=== PATIENT | male | born 1945 | race Caucasian/White ===

== ENCOUNTER → 2016-08-31 | Outpatient (CLI) | payer BC | END | disposition home or self-care (01) | LOC: LAB.O 14:23 | PROVIDERS: ATTEND Urology | DX: E29.1 Testicular hypofunction (principal) ==

== ENCOUNTER → 2016-09-09 | Outpatient (CLI) | payer BC | END | disposition home or self-care (01) | LOC: GMAL 10:13 | PROVIDERS: ATTEND Family Medicine | DX: D51.3 Other dietary vitamin B12 deficiency anemia (principal) ==

== ENCOUNTER → 2016-11-09 | Outpatient (CLI) | payer BC | END | disposition home or self-care (01) | LOC: GMAL 11:26 | PROVIDERS: ATTEND Family Medicine | DX: D51.3 Other dietary vitamin B12 deficiency anemia (principal); E55.9 Vitamin D deficiency, unspecified ==

== ENCOUNTER → 2017-03-15 | Outpatient (CLI) | payer BC | END | disposition home or self-care (01) | LOC: LAB.O 07:58 | PROVIDERS: ATTEND Urology | DX: E29.1 Testicular hypofunction (principal) | CPT/HCPCS: 36415; 80053; 84403; G0103 ==

== ENCOUNTER → 2017-09-01 | Outpatient (CLI) | payer BC | LOC: LAB.O 07:26 | PROVIDERS: ATTEND Urology | DX: E29.1 Testicular hypofunction (principal); R97.20 Elevated prostate specific antigen [PSA] ==

== ENCOUNTER → 2017-12-02 | Outpatient (CLI) | payer BC | LOC: GMAL 11:31 | PROVIDERS: ATTEND Family Medicine | DX: D51.3 Other dietary vitamin B12 deficiency anemia (principal); R53.83 Other fatigue; E55.9 Vitamin D deficiency, unspecified ==

== ENCOUNTER → 2018-01-12 | Outpatient (CLI) | payer BC ==
--- NOTE | 2018-01-12 10:13 | RAD ---
EXAM DESCRIPTION: Shoulder,Right 2 or More Views CLINICAL HISTORY: 72 years Male, PAIN COMPARISON: None available. FINDINGS: The visualized bones are well-mineralized.No acute fracture or dislocation. The soft tissues appear grossly unremarkable. Mild acromioclavicular joint osteoarthritis. Irregularity along the greater tuberosity suggests rotator cuff pathology. IMPRESSION: Mild acromioclavicular joint osteoarthritis. Irregularity along the greater tuberosity suggests rotator cuff pathology. Electronically signed by: Bethany Dudley MD 01/12/2018 10:12 AM CDT
== END ==
LOC: RAD 07:38
PROVIDERS: ATTEND Orthopaedic Surgery
DX: M19.011 Primary osteoarthritis, right shoulder (principal); M25.511 Pain in right shoulder

== ENCOUNTER → 2018-02-27 | Outpatient (CLI) | payer BC | LOC: GMAL 17:57 | PROVIDERS: ATTEND Family Medicine | DX: R30.0 Dysuria (principal); N41.1 Chronic prostatitis ==

== ENCOUNTER → 2018-03-02 | Outpatient (CLI) | payer BC | LOC: LAB.O 08:03 | PROVIDERS: ATTEND Urology | DX: N42.9 Disorder of prostate, unspecified (principal); E29.1 Testicular hypofunction ==

== ENCOUNTER → 2018-06-08 | Outpatient (CLI) | payer BC | LOC: GMAL 10:56 | PROVIDERS: ATTEND Family Medicine | DX: D51.0 Vitamin B12 deficiency anemia due to intrinsic factor deficiency (principal); R97.20 Elevated prostate specific antigen [PSA] ==

== ENCOUNTER → 2018-09-12 | Outpatient (CLI) | payer BC | LOC: LAB.O 07:09 | PROVIDERS: ATTEND Family Medicine | DX: E29.1 Testicular hypofunction (principal); R97.20 Elevated prostate specific antigen [PSA] ==

== ENCOUNTER → 2018-10-16 | Outpatient (CLI) | payer BC ==
--- NOTE | 2018-10-16 11:57 | RAD ---
EXAM DESCRIPTION: Pelvis, single view CLINICAL HISTORY: M25.551 FINDINGS/ IMPRESSION: Mild joint space narrowing bilateral hips. Superior lateral acetabular osteophyte ridge No fracture of proximal femora or pelvis. No advanced arthrosis of the sacroiliac joints or pubic symphysis Electronically signed by: Christopher Gilmore MD 10/16/2018 11:55 AM CDT
--- NOTE | 2018-10-16 12:01 | RAD ---
EXAM DESCRIPTION: Knee,Left Complete CLINICAL HISTORY: 73 years Male, M25.561 TECHNIQUE: 3 views of the left knee were performed. COMPARISON: None available. FINDINGS: The visualized bones appear well mineralized. No acute fracture or dislocation. Tricompartmental joint space narrowing and osteophytosis is noted, worse in the lateral tibiofemoral compartment. Small suprapatellar joint effusion is identified. The soft tissues appear grossly unremarkable. Spurring of the tibial tuberosity is noted. IMPRESSION: Tricompartmental osteoarthritis of the left knee, worse in the lateral tibiofemoral compartment. Electronically signed by: Bethany Dudley MD 10/16/2018 11:59 AM CDT
--- NOTE | 2018-10-16 12:02 | RAD ---
EXAM DESCRIPTION: Knee,Right Complete CLINICAL HISTORY: 73 years Male, KNEE PAIN TECHNIQUE: 3 views of the right knee were performed. COMPARISON: None available. FINDINGS: The visualized bones appear well mineralized. No acute fracture or dislocation. Tricompartmental joint space narrowing and marginal osteophytosis is noted, worse in the lateral tibiofemoral compartment. Tiny suprapatellar joint effusion is noted. Spurring of the tibial tuberosity is identified. The soft tissues appear grossly unremarkable. IMPRESSION: Tricompartmental osteoarthritis of the right knee, with changes worse in the lateral tibiofemoral compartment. Electronically signed by: Bethany Dudley MD 10/16/2018 11:59 AM CDT
== END ==
LOC: RAD 08:10
PROVIDERS: ATTEND Orthopaedic Surgery
DX: M17.12 Unilateral primary osteoarthritis, left knee (principal); M17.11 Unilateral primary osteoarthritis, right knee; M25.552 Pain in left hip; M25.551 Pain in right hip; M25.70 Osteophyte, unspecified joint

== ENCOUNTER → 2018-12-06 | Outpatient (CLI) | payer BC | LOC: GMAL 10:43 | PROVIDERS: ATTEND Family Medicine | DX: D51.3 Other dietary vitamin B12 deficiency anemia (principal); I10 Essential (primary) hypertension; E78.49 Other hyperlipidemia; E55.9 Vitamin D deficiency, unspecified ==

== ENCOUNTER → 2019-03-15 | Outpatient (CLI) | payer BC | LOC: LAB.O 07:42 | PROVIDERS: ATTEND Urology | DX: R97.20 Elevated prostate specific antigen [PSA] (principal); E29.1 Testicular hypofunction ==

== ENCOUNTER → 2019-12-27 | Outpatient (CLI) | payer BC | LOC: GMAL 10:17 | PROVIDERS: ATTEND Family Medicine | DX: D51.3 Other dietary vitamin B12 deficiency anemia (principal); I10 Essential (primary) hypertension; R97.20 Elevated prostate specific antigen [PSA]; R53.83 Other fatigue; E55.9 Vitamin D deficiency, unspecified; E78.49 Other hyperlipidemia ==

== ENCOUNTER 2020-01-23 15:48 | Emergency (ER) | payer BC ==
--- NOTE | 2020-01-23 16:46 | RAD ---
EXAM DESCRIPTION: Chest,1 View CLINICAL HISTORY: fever COMPARISON: Chest radiograph dated July 27, 2019 TECHNIQUE: One view radiograph of the chest FINDINGS: Lung volumes are shallow with associated bronchovascular crowding. Cardiac silhouette shows normal heart size. Pulmonary vascularity is within normal limits. Subtle linear opacity in the left lung base most compatible with atelectasis. Otherwise, lungs show no confluent infiltrates. Right lung shows no confluent infiltrates. No pleural effusion. No pneumothorax. No acute osseous abnormality. IMPRESSION: Minimal left basilar atelectasis. Otherwise, lungs show no confluent infiltrates. Electronically signed by: Gianfranco Zavala MD 01/23/2020 4:44 PM CDT
--- NOTE | 2020-01-23 18:20 | ED.PDOC ---
History of Present Illness - General Chief Complaint: Lower Extremity Injury Stated Complaint: swollen left knee (post left TKA) / fever Time Seen by Provider: 01/23/20 16:12 Source: patient, family Exam Limitations: no limitations - History of Present Illness Initial Comments: The patient is a 4-year-old male presented emergency room secondary to mild increased erythema to his left knee operative site as well as a low-grade temperature of 100.8 this morning. The patient had a knee replacement done [address] Wallace in [place]. Contact information for the clinic is [phone]. There is mild erythema over the site. No drainage. Borders of the erythema are marked with a marking pen. has taken a picture with her digital phone. The patient is currently afebrile. There is not really much in the way of increased pain. For 1 week out, the knee looks fairly normal. Timing/Duration: 4-6 hours Severity: mild Improving Factors: nothing Worsening Factors: nothing Associated Symptoms: denies symptoms Allergies/Adverse Reactions: Allergies NO KNOWN ALLERGY Allergy (Verified 01/23/20 16:08) Review of Systems - Review of Systems Constitutional: States: fever EENTM: States: no symptoms reported Respiratory: States: no symptoms reported Cardiology: States: no symptoms reported Gastrointestinal/Abdominal: States: no symptoms reported Genitourinary: States: no symptoms reported Musculoskeletal: States: see HPI Skin: States: see HPI Neurological: States: no symptoms reported Endocrine: States: no symptoms reported All other Systems: No Change from Baseline Past Medical History (General) - Patient Medical History Hx Cardiac Disorders: No Hx Congestive Heart Failure: No Hx Hypertension: Yes Hx Diabetes: No - Vaccination History Hx Influenza Vaccination: Yes Hx Pneumococcal Vaccination: Yes - Social History Hx Alcohol Use: Yes - Activities of Daily Living Hospice Agency (if applicable):: None - Female History Patient is a Female of Child Bearing Age (10 -59 yrs old): No Family Medical History - Family History Mother Family History: Unknown Physical Exam - Physical Exam General Appearance: Alert, Comfortable, No apparent distress Eye Exam: right normal Ears, Nose, Throat: hearing grossly normal, normal pharynx Neck: full range of motion, supple Respiratory: lungs clear, normal breath sounds, no respiratory distress, no accessory muscle use Cardiovascular/Chest: normal peripheral pulses, regular rate, rhythm, no edema Peripheral Pulses: radial,right: 2+, radial,left: 2+, dorsalis pedis,right: 2+, dorsalis pedis,left: 2+ Gastrointestinal/Abdominal: non tender, soft Rectal Exam: deferred Back Exam: no vertebral tenderness Extremity: normal range of motion - Given recent surgical limitation, no pedal edema, normal capillary refill 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 Very mild distal swelling Comments: Vital Signs - 24 hr 01/23/20 01/23/20 01/23/20 16:00 16:17 17:00 Temperature 98.6 F 96.9 F L Pulse Rate [ 84 84 73 brachial] Respiratory 16 16 16 Rate Blood Pressure 108/60 113/64 [Left Arm] O2 Sat by Pulse 95 98 Oximetry Progress - Progress Progress: 01/23/20 18:21 The patient is a 74-year-old male presented emergency room secondary to a low-grade fever earlier in the day along with some redness to the left knee operative site today. The patient had apparently done fairly aggressive therapy yesterday. Patient is currently afebrile. Erythema is really fairly minimal at this point. Area has been demarcated and photographed with the 's phone. White blood cell count was 13,000 with 76% neutrophils. This is a little higher than his normal. CRP was 11.7. This was simply done for reference. Overall the patient appears to be doing well. I did discuss the patient with Dr. Wallace's chemical instrumentation officer doctor, Dr. Ayala. It was agreed that the patient will be allowed to go home and contact Dr. Wallace's office tomorrow to set up an clinic appointment for the next day. No antibiotics have been started at this time. A blood culture was done. Strict ER warnings are given for any acute worsening. monica larios [phone] - Results/Orders Results/Orders: Laboratory Tests 01/23/20 01/23/20 16:25 16:25 WBC 13.2 H RBC 4.07 L Hgb 13.3 L Hct 38.3 L MCV 94.2 H MCH 32.7 H MCHC 34.7 RDW 13.4 Plt Count 362 MPV 6.5 L Absolute Neuts (auto) 10.10 H Absolute Lymphs (auto) 1.10 Absolute Monos (auto) 1.40 H Absolute Eos (auto) 0.50 H Absolute Basos (auto) 0.10 Neutrophils % 76.5 Lymphocytes % 8.4 L Monocytes % 10.6 H Eosinophils % 4.0 Basophils % 0.5 Sodium 135 Potassium 4.2 Chloride 99 L Carbon Dioxide 27 Anion Gap 13.2 BUN 39 H Creatinine 1.18 BUN/Creatinine Ratio 33.1 H Random Glucose 113 H Serum Osmolality 280.3 Calcium 8.6 Total Bilirubin 0.9 AST 18 ALT 22 Alkaline Phosphatase 42 C-Reactive Protein 11.7 H* Serum Total Protein 6.0 L Albumin 3.5 Globulin 2.5 Albumin/Globulin Ratio 1.4 Bio fire test from the clinic is negative. Chest x-ray shows no acute pathology. there is mild atelectasis Departure - Departure Clinical Impression: Postsurgical fever Disposition: Discharge to Home or Self Care Condition: Fair Departure Forms: ED Discharge - Pt. Copy, Patient Portal Self Enrollment Diet: regular diet Activity: increase activity as tolerated Referrals: Gianfranco Ceballos III, MD [Primary Care Provider] - 1-2 Weeks Additional Instructions: The patient is a 74-year-old male presented emergency room secondary to a low-grade fever earlier in the day along with some redness to the left knee operative site today. The patient had apparently done fairly aggressive therapy yesterday. Patient is currently afebrile. Erythema is really fairly minimal at this point. Area has been demarcated and photographed with the 's phone. White blood cell count was 13,000 with 76% neutrophils. This is a little higher than his normal. CRP was 11.7. This was simply done for reference. Overall the patient appears to be doing well. I did discuss the patient with Dr. Wallace's chemical instrumentation officer doctor, Dr. Ayala. It was agreed that the patient will be allowed to go home and contact Dr. Wallace's office tomorrow to set up an clinic appointment for the next day. No antibiotics have been started at this time. A blood culture was done. Strict ER warnings are given for any acute worsening. motrin or aleve can be used for discomfort.
[2020-01-23 18:34] VITALS: TEMP 97.1
[2020-01-23 18:35] VITALS: BP 126/63; O2SAT 95
== END 2020-01-23 18:35 | disposition home or self-care (01) ==
LOC: ER 15:48
DX: R50.82 Postprocedural fever (principal); I10 Essential (primary) hypertension; Z96.652 Presence of left artificial knee joint

== ENCOUNTER → 2020-02-04 | Outpatient (CLI) | payer BC | LOC: LAB.O 12:27 | PROVIDERS: ATTEND Internal Medicine | DX: B95.7 Other staphylococcus as the cause of diseases classified elsewhere (principal); T84.54XA Infection and inflammatory reaction due to internal left knee prosthesis, initial encounter ==

== ENCOUNTER → 2020-02-11 | Outpatient (CLI) | payer BC | END | disposition home or self-care (01) | LOC: LAB.O 13:10 | PROVIDERS: ATTEND Internal Medicine | DX: T84.54XA Infection and inflammatory reaction due to internal left knee prosthesis, initial encounter (principal) ==

== ENCOUNTER → 2020-02-25 | Outpatient (CLI) | payer BC | LOC: LAB 12:06 | PROVIDERS: ATTEND Internal Medicine | DX: T84.54XA Infection and inflammatory reaction due to internal left knee prosthesis, initial encounter (principal) ==

== ENCOUNTER → 2020-04-11 | Outpatient (CLI) | payer BC ==
--- NOTE | 2020-04-12 21:57 | RAD ---
EXAM DESCRIPTION: Radiographs of the right Shoulder:XR/CR/DR CLINICAL HISTORY: PAIN IN RIGHT SHOULDER COMPARISON: Same radiograph series of the left shoulder. TECHNIQUE: Three views. Internal and External rotation. Scapular "Y" image. FINDINGS: No fracture right shoulder.. Normal bone density. AC joint minimal marginal spurs. Glenohumeral joint narrowing and marginal spurs inferior. Sclerosis and minimal hypertrophy of the greater tuberosity. Possible subchondral changes inferior glenoid. No abnormal radiodense objects in the soft tissues or joint spaces. No dislocation. IMPRESSION: Minimal arthrosis in the right AC joint and in the inferior right glenohumeral joint with possible subchondral changes inferior right glenoid. Electronically signed by: Amado Quintana MD 04/12/2020 9:55 PM CDT
--- NOTE | 2020-04-12 21:58 | RAD ---
EXAM DESCRIPTION: Radiographs of the left Shoulder:XR/CR/DR CLINICAL HISTORY: PAIN IN LEFT SHOULDER COMPARISON: Right shoulder radiographs on the same visit. TECHNIQUE: 4 views. Internal and External rotation. Scapular "Y" image and axillary view. FINDINGS: No fracture left shoulder. Normal bone density. AC joint inferior marginal spurs. Glenohumeral joint unremarkable. No abnormal radiodense objects in the soft tissues or joint spaces. No dislocation. IMPRESSION: Minimal arthrosis in the left AC joint. Electronically signed by: Amado Quintana MD 04/12/2020 9:57 PM CDT
== END ==
LOC: RAD 08:19
PROVIDERS: ATTEND Orthopaedic Surgery
DX: M19.011 Primary osteoarthritis, right shoulder (principal); M19.012 Primary osteoarthritis, left shoulder

== ENCOUNTER 2020-05-17 12:46 | Emergency (ER) | payer BC ==
--- NOTE | 2020-05-17 13:23 | ED.PDOC ---
History of Present Illness - General Chief Complaint: General Stated Complaint: LEFT LEG SWELLING X 1 WEEK Time Seen by Provider: 05/17/20 13:00 Source: patient Exam Limitations: no limitations, clinical condition - History of Present Illness Initial Comments: PATIENT WITH 3-4 DAYS HX OF PROGRESSIVE LEFT LOWER LEG SWELLING, CALF PAIN AND PAIN WITH WALKING. DENIES PRIOR HX OF DVT. PMHX OF HTN. Improving Factors: nothing Worsening Factors: nothing Associated Symptoms: denies symptoms Allergies/Adverse Reactions: Allergies NO KNOWN ALLERGY Allergy (Verified 05/17/20 12:53) Home Medications: Ambulatory Orders Daptomycin [Cubicin] 500 mg IV Q24HR 02/13/20 Escitalopram Oxalate [Lexapro] 20 mg PO DAILY 02/13/20 Hydrocodone-Acetaminophen [Erie 7.5-325 mg] 1 tab PO PRN 02/13/20 Hydroxychloroquine Sulfate [Plaquenil] 200 mg PO BID 02/13/20 Lisinopril 10 mg PO DAILY 02/13/20 Meloxicam [Mobic] 15 mg PO DAILY 02/13/20 Prednisone 10 mg PO BERRY-OTH-DAY 02/13/20 Promethazine Tab [Phenergan Tablet] 1 tablet PO Q6H #12 tab 02/13/20 Tamsulosin [Flomax] 0.4 mg PO BID 02/13/20 Testosterone Cypionate 200 mg IJ .[id number] 02/13/20 Trazodone HCl [Trazodone Hydrochloride] 100 mg PO BEDTIME 02/13/20 Review of Systems - Review of Systems Constitutional: States: no symptoms reported EENTM: States: no symptoms reported Respiratory: States: no symptoms reported Cardiology: States: no symptoms reported Gastrointestinal/Abdominal: States: no symptoms reported Genitourinary: States: no symptoms reported Musculoskeletal: States: see HPI Skin: States: no symptoms reported Neurological: States: no symptoms reported Endocrine: States: no symptoms reported Past Medical History (General) - Patient Medical History Hx Seizures: No Hx Stroke: No Hx Dementia: No Hx Asthma: No Hx of COPD: No Hx Cardiac Disorders: No Hx Congestive Heart Failure: No Hx Pacemaker: No Hx Hypertension: Yes Hx Thyroid Disease: No Hx Diabetes: No Hx Gastroesophageal Reflux: No Hx Renal Disease: No Hx Cancer: Yes Hx of HIV: No Hx Hepatitis C: No Hx MRSA: No - Vaccination History Hx Tetanus, Diphtheria Vaccination: Yes Hx Influenza Vaccination: No Hx Pneumococcal Vaccination: No Immunizations Up to Date: No - Social History Hx Tobacco Use: No Hx Chewing Tobacco Use: No Hx Alcohol Use: Yes Hx Substance Use: No Hx Substance Use Treatment: No Hx Depression: No Feels Threatened In Home Enviroment: No Feels Threatened In a Relationship: No Hx Physical Abuse: No Hx Emotional Abuse: No Hx Suspected Abuse: No - Female History Patient is a Female of Child Bearing Age (10 -59 yrs old): No Patient : No Family Medical History - Family History Mother Family History: Unknown Living Status: Hx Family Asthma: No Hx Family Congestive Heart Failure: No Hx Family Hypertension: No Hx Family Stroke: No Physical Exam - Physical Exam General Appearance: Alert, Comfortable, Well Developed, Well Groomed Neck: non-tender, full range of motion, supple, normal inspection Respiratory: chest non-tender, lungs clear, normal breath sounds, no respiratory distress Cardiovascular/Chest: normal peripheral pulses, regular rate, rhythm, no edema, no gallop Gastrointestinal/Abdominal: normal bowel sounds, non tender, soft, no organomegaly Back Exam: normal inspection, no CVA tenderness, no vertebral tenderness Extremity: normal range of motion, non-tender, normal inspection, no pedal edema Neurologic: ambulance driver II-XII nml as tested, no motor/sensory deficits, alert Progress - EKG/XRAY/CT CT Ordered: No CT Interpretation Call Back: No Departure - Departure Clinical Impression: Hematoma of lower leg Clinical Impression: (Ruled Out): Calcified hematoma of head Time of Disposition: 14:20 Disposition: Discharge to Home or Self Care Condition: Good Departure Forms: ED Discharge - Pt. Copy, Patient Portal Self Enrollment Instructions: Contusion (DC) Referrals: Gianfranco Ceballos III, MD [Primary Care Provider] - 1-2 Weeks Home Medications: Ambulatory Orders Daptomycin [Cubicin] 500 mg IV Q24HR 02/13/20 Escitalopram Oxalate [Lexapro] 20 mg PO DAILY 02/13/20 Hydrocodone-Acetaminophen [Erie 7.5-325 mg] 1 tab PO PRN 02/13/20 Hydroxychloroquine Sulfate [Plaquenil] 200 mg PO BID 02/13/20 Lisinopril 10 mg PO DAILY 02/13/20 Meloxicam [Mobic] 15 mg PO DAILY 02/13/20 Prednisone 10 mg PO BERRY-OTH-DAY 02/13/20 Promethazine Tab [Phenergan Tablet] 1 tablet PO Q6H #12 tab 02/13/20 Tamsulosin [Flomax] 0.4 mg PO BID 02/13/20 Testosterone Cypionate 200 mg IJ .[id number] 02/13/20 Trazodone HCl [Trazodone Hydrochloride] 100 mg PO BEDTIME 02/13/20 Additional Instructions: RECOMMEND GEMA HOSE(JOBST STOCKING), HEATING PAD AND TIME. THIS PROBLEM SHOULD SPONTANEOUSLY RESOLVE OVER THE NEXT 3-6 WEEKS.
[2020-05-17 13:58] VITALS: BP 139/74
--- NOTE | 2020-05-17 14:10 | US ---
EXAM DESCRIPTION: Venous,Lower Extremity LT CLINICAL HISTORY: 74 years Male, R/O DVT COMPARISON: None. TECHNIQUE: Grayscale, color, and spectral Doppler imaging was obtained of the veins within the left leg. FINDINGS: The common femoral vein, femoral vein, greater saphenous vein origin, popliteal vein, and posterior tibial veins are imaged on this exam. There is no thrombus or occlusion identified. The vessels are compressible, where possible. Normal color and spectral characteristics are demonstrated. There is generalized edema within the calf. A more focal fluid collection is seen in the medial left lower leg measuring 1 cm in thickness and extending over an approximately 6 cm length. IMPRESSION: 1. No left lower extremity DVT. 2. Generalized subcutaneous edema, which is somewhat more focal in the medial left calf. This area and the catheter could alternatively represent a hematoma, and less likely, an abscess. The surrounding fat does not appear particularly inflamed. Electronically signed by: Amado Cook MD 05/17/2020 2:08 PM [facility]
[2020-05-17 14:33] VITALS: TEMP 97.9; O2SAT 99
== END 2020-05-17 14:33 | disposition home or self-care (01) ==
LOC: ER 12:46
DX: S80.12XA Contusion of left lower leg, initial encounter (principal); I10 Essential (primary) hypertension; Z85.9 Personal history of malignant neoplasm, unspecified; Z79.899 Other long term (current) drug therapy; X58.XXXA Exposure to other specified factors, initial encounter; Y92.9 Unspecified place or not applicable

== ENCOUNTER → 2020-06-30 | Outpatient (CLI) | payer BC | LOC: GMAL 11:34 | PROVIDERS: ATTEND Family Medicine | DX: D51.0 Vitamin B12 deficiency anemia due to intrinsic factor deficiency (principal); Z79.899 Other long term (current) drug therapy; D53.9 Nutritional anemia, unspecified; E78.49 Other hyperlipidemia ==